=== PATIENT | female | born 1960 | race Caucasian/White ===

== ENCOUNTER 2019-03-24 15:21 | Outpatient (CLI) | payer MEDICARE, SELFPAY ==
--- NOTE | ~2019-03-24 | XR_ITS ---
EXAMINATION: XR hand RT min 3V DATE: 03/24/2019 15:44 INDICATION: Osteoarthritis with pain and pelvis at the second and third distal interphalangeal joints TECHNIQUE: Posteroanterior, oblique and lateral views of the right hand were obtained. COMPARISON: None. FINDINGS: Alignment is normal. No fracture. Minimal osteoarthritis with slight nonuniform joint space narrowing at the first interphalangeal and fifth interphalangeal joints and tiny marginal osteophytes at the t hird distal interphalangeal joint. No cortical erosions. Soft tissues are unremarkable. IMPRESSION: 1. Minimal osteoarthritis at the first interphalangeal and third and fifth distal interphalangeal luz maria nts. Reviewed, dictated and finalized at location A. T ATTENDANT IMPRESSION: 1. Minimal osteoarthritis at the first interphalangeal and third and fifth dist al interphalangeal joints.
== END 2019-03-24 15:22 | disposition home or self-care (01) ==
LOC: ANHIMG 15:30
PROVIDERS: PCP Emergency Medicine; Visit Provider Plastic Surgery
DX: M19.041 Primary osteoarthritis, right hand (principal)
CPT/HCPCS: 73130

== ENCOUNTER → 2019-04-01 09:56 | Outpatient (CLI) | payer MEDICARE, SELFPAY ==
--- NOTE | ~2019-04-01 | CT_ITS ---
EXAMINATION: CT soft tissue neck w con DATE: 04/01/2019 10:16 INDICATION: Left neck lymphadenopathy. TECHNIQUE: Computed tomography (CT) of the neck was performed with 75 mL Omnipaque-350 intravenous co ntrast. Automated exposure control and iterative reconstruction technique were employed. The dose-ayaz gth product was 372.51 mGy-cm. COMPARISON: Brain MRI 10/08/2009 FINDINGS: There is mild scarring at the lung apices. The cervical carotid arteries are normal. There are no pathologically enlarged lymph nodes. There is a mucous retention cyst in right maxillary sinus . There are changes of right mastoidectomy. In the right jugular foramen, there is a 1.4 x 1.1 cm mas s with osteolysis of adjacent bone. There is moderate cervical spondylosis. IMPRESSION: 1. No lymphadenopathy. 2. 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 Reviewed, dictated and finalized at location A. CTICIDE EXPERT
== END ==
PROVIDERS: PCP Emergency Medicine; Visit Provider Emergency Medicine
DX: R59.1 Generalized enlarged lymph nodes (principal)
CPT/HCPCS: 70491; Q9967

== ENCOUNTER 2019-06-22 14:41 | Outpatient (CLI) | payer MEDICARE, SELFPAY ==
--- NOTE | ~2019-06-22 | XR_ITS ---
XR_CERV2-3V_CR 06/22/2019 15:09 Indication: Neck pain Procedure: 4 view cervical spine Comparison: No prior studies for comparison. Findings: Straightening of cervical lordosis. There is mild disc narrowing at C5-6. There is degenera tive anterolisthesis at C4-5. No prevertebral soft tissue abnormality. Odontoid process within normal limits. Lung apices are normal. There are mild foot uncinate degenerative changes at C4-5, C5-6 and C6-7. Impression: 1: Mild cervical spondylosis. Reviewed, dictated and finalized at location A. Impression: 1: Mild cervical spondylosis.
== END 2019-06-22 14:42 | disposition home or self-care (01) ==
LOC: CHSIMG 14:43
PROVIDERS: PCP Internal Medicine; Visit Provider Internal Medicine
DX: M54.2 Cervicalgia (principal)
CPT/HCPCS: 72040

== ENCOUNTER 2019-10-26 16:00 | Outpatient (CLI) | payer MEDICARE, SELFPAY ==
--- NOTE | ~2019-10-26 | XR_ITS ---
XR hip RT min 2V DATE: 10/26/2019 16:22 INDICATION: Right hip pain for one week TECHNIQUE: AP and lateral views COMPARISON: None FINDINGS: No fracture or dislocation, avascular necrosis or bone destruction. Right hip joint space is well preserved. the pubic symphysis and right sacroiliac joint are normal. Sutures overlie the r ight pelvis. IMPRESSION: Negative right hip Reviewed, dictated and finalized at location A. IMPRESSION: Negative right hip
--- NOTE | ~2019-10-26 | XR_ITS ---
XR lumbar spine 2-3V DATE: 10/26/2019 16:22 INDICATION: Right lower back and right hip pain for one week TECHNIQUE: AP, lateral, coned lateral lumbosacral views COMPARISON: None FINDINGS: There is old moderate anterior wedge compression fracture deformity of L3 with cupping of t he superior vertebral endplate. There is prominent degenerative disc disease at L2-3. There is mild to moderate degenerative disc disease at L3-4. Diffuse osteopenia. There is minimal levoscoliosis of the lumbar spine. No bone destruction is evident. The included T11-L5 pedicles are intact. The sacroiliac joints are intact. IMPRESSION: Chronic L3 compression fracture deformity Prominent degenerative disc disease at L2-3, mild/moderate degenerative disc disease at L3-4 Reviewed, dictated and finalized at location A. IMPRESSION: Chronic L3 compression fracture deformity Prominent degenerative disc disease at L2-3, mild/moderate degenerative disc di sease at L3-4
== END 2019-10-26 16:01 | disposition home or self-care (01) ==
LOC: CHSIMG 16:01
PROVIDERS: PCP Internal Medicine; Visit Provider Internal Medicine
DX: M25.551 Pain in right hip (principal)
CPT/HCPCS: 72100; 73502

== ENCOUNTER 2021-07-21 08:54 | Outpatient (CLI) | payer MEDICARE, SELFPAY ==
--- NOTE | ~2021-07-21 | MR_ITS ---
EXAMINATION: MR lumbar spine wo con DATE: 07/21/2021 09:48 INDICATION: R sided LBP R upper lat leg pain x2mo, NKI . TECHNIQUE: Magnetic resonance imaging (MRI) of the lumbar spine was performed without intravenous con trast. Sequences included sagittal T2-weighted FSE, sagittal T2-weighted FS FSE, sagittal T1-weighted FSE, and axial T2-weighted FSE. COMPARISON: 05/09/2017. FINDINGS: The last fully formed and hydrated disc is designated L5-S1. The marrow signal is benign, l ikely with some degree of marrow reconversion. Mild anterior wedge deformity of L3, unchanged. Conus terminates at L1. Multilevel disc dehydration. The following disc levels are specifically discussed: T11-T12: The disc does not extend beyond the endplate margin. There is no facet joint osteoarthritis. There is no neural foraminal stenosis. There is no central canal stenosis. T12-L1: The disc does not extend beyond the endplate margin. There is mild facet joint osteoarthritis . There is no neural foraminal stenosis. There is no central canal stenosis. L1-L2: Mild diffuse bulge. There is moderate facet joint osteoarthritis. There is no neural foraminal stenosis. There is mild central canal stenosis. L2-L3: Severe loss of disc height with reactive endplate changes. Large diffuse bulge. There is moder ate facet joint osteoarthritis. There is mild left and moderate right neural foraminal stenosis. Ther e is mild central canal stenosis. L3-L4: Mild diffuse bulge. There is moderate facet joint osteoarthritis. There is moderate bilateral neural foraminal stenosis. There is mild central canal stenosis. L4-L5: Mild diffuse bulge with a right foraminal component. There is moderate facet joint osteoarthri tis. There is moderate bilateral neural foraminal stenosis. The exiting nerve root on the left is in the inferior and most narrow portion of the foramen with slight deformation. There is mild central ca nal stenosis. L5-S1: Mild diffuse bulge There is moderate facet joint osteoarthritis. There is moderate left neural foraminal stenosis. There is no central canal stenosis. IMPRESSION: 1. Severe degenerative disc disease at L2-3. 2. Multilevel bilateral moderate neural foraminal stenosis described above. Moderate-severe left L4-5 neural foraminal narrowing with deformation of the exiting L4 nerve root. 3. Multilevel facet arthropathy. Reviewed, dictated and finalized at location K. IMPRESSION: 1. Severe degenerative disc disease at L2-3. 2. Multilevel bilateral moderate neural foraminal stenosis described above. Mod erate-severe left L4-5 neural foraminal narrowing with deformation of the exiti ng L4 nerve root. 3. Multilevel facet arthropathy.
== END 2021-07-21 08:55 | disposition home or self-care (01) ==
LOC: CHSIMG 08:55
PROVIDERS: PCP Internal Medicine; Visit Provider Internal Medicine
DX: M54.50 Low back pain, unspecified (principal)
CPT/HCPCS: 72148

== ENCOUNTER 2021-12-05 10:59 | Outpatient (CLI) | payer MEDICARE, SELFPAY ==
--- NOTE | ~2021-12-05 | XR_ITS ---
EXAMINATION: XR elbow RT min 3V DATE: 12/05/2021 11:18 INDICATION: Right elbow pain. TECHNIQUE: 4 views of right elbow were obtained. COMPARISON: Right elbow radiographs 12/25/2006 FINDINGS: Bone alignment is normal. No fracture. Joint spaces are well maintained. There is no elbow joint effusion. IMPRESSION: 1. Normal right elbow. Reviewed, dictated and finalized at location B. IMPRESSION: 1. Normal right elbow.
== END 2021-12-05 11:00 | disposition home or self-care (01) ==
LOC: CHSIMG 11:01
PROVIDERS: PCP Internal Medicine; Visit Provider Internal Medicine
DX: M25.521 Pain in right elbow (principal)
CPT/HCPCS: 73080

== ENCOUNTER 2022-04-03 09:54 | Outpatient (CLI) | payer MEDICARE, SELFPAY ==
--- NOTE | ~2022-04-03 | CT_ITS ---
EXAMINATION: CT abdomen pelvis w con INDICATION: Postprandial abdominal pain TECHNIQUE: Computed tomographic images of the abdomen and pelvis were obtained after the administrati on of 100 cc of Omnipaque 350 intravenous contrast. The dose-length product (DLP) was 314.91 mGy-cm. Automated exposure control and iterative reconstruction technique were employed. COMPARISON: None available FINDINGS: Minimal dependent atelectasis is present in the lung bases. The heart size is normal. Bilat eral breast implants are noted. Cysts of the liver measure up to 3 mm. There is focal fatty infiltrat ion of the liver near the ligamentum teres. The spleen, pancreas, gallbladder, and adrenal glands are normal. The right kidney is unremarkable. There is a 4 mm nonobstructing stone of the left kidney lo wer pole. No pathologically enlarged abdominal or pelvic lymph nodes are identified. No free intraper itoneal gas or evidence of bowel obstruction. A chronic L3 compression fracture is noted. IMPRESSION: 1. No CT correlate for the patient's symptoms. Reviewed, dictated and finalized at location B. TAL LAPPER
[2022-04-03 10:35] LABS: Estimated Glomerular Filt Rate > 60
== END 2022-04-03 09:55 | disposition home or self-care (01) ==
LOC: CHSIMG 09:55
PROVIDERS: PCP Internal Medicine; Visit Provider Internal Medicine
DX: R10.9 Unspecified abdominal pain (principal); Z90.5 Acquired absence of kidney
CPT/HCPCS: 74177; Q9967

== ENCOUNTER 2022-06-06 01:55 | Day surgery (SDC) | payer MEDICARE, SELFPAY ==
[2022-05-28 11:44] VITALS: BMI 23.2
--- NOTE | 2022-06-05 15:50 | PM.HPGS ---
History of Present Illness History of Present Illness Consent: Risks, benefits, and alternatives have been discussed and questions answered. Patient agrees to proceed with procedure. Chief complaint: Vomiting, Abdominal Pain, neoplasm screening Narrative: Vida Su is a 61 year old female Who has had a sensation of pulling after eating a meal and often will regurgitate after eating. She is also due for colon cancer screening. Review of Systems Review of Systems: All systems reviewed & are unremarkable except as noted in HPI and below PMFSH Surgical History Surgical History Hx of total mastectomy Family History Family History Father Hypertension Cerebrovascular accident Mother Thyroid disease Sibling Asthma Depression Anxiety Alcoholism Grandparent Breast cancer Cervical cancer Social History Social History Smoking status: Never smoker Alcohol intake: never Substance use: never Substance use type: does not use Living arrangements: alone Spiritual care concerns: No Meds Home Medications and Allergies Home Medications Medication Instructions Recorded Confirmed Type cholecalciferol (vitamin D3) 10 10 mcg PO DAILY 11/14/20 05/28/22 History mcg (400 unit) capsule (Vitamin D3) ondansetron HCl 4 mg tablet 4 mg PO Q8H PRN Nausea 11/14/20 05/28/22 History (Zofran) rizatriptan 10 mg tablet (Maxalt) 10 mg PO ONCE PRN Migraine Headache 11/14/20 05/28/22 History valacyclovir 500 mg tablet 500 mg PO DAILY PRN Cold Sores 11/14/20 05/28/22 History (Valtrex) estradiol 0.05 mg/24 hr weekly 1 patch transdermal WEEKLY 04/30/22 05/28/22 History transdermal patch magnesium hydroxide 1,200 mg 1,200 mg PO DAILY 04/30/22 05/28/22 History chewable tablet Allergies Allergy/AdvReac Type Severity Reaction Status Date / Time metronidazole Allergy Intermediate Nausea and Verified 06/06/22 08:19 Vomiting morphine Allergy Intermediate hives Verified 06/06/22 08:19 Exam Const: General: alert Orientation/consciousness: patient oriented x3 Resp: Auscultation: clear to auscultation bilaterally Cardio: Rhythm: regular rhythm GI: GI Palp: Yes Soft to palpation and No Tenderness to palpation present (GI) Neuro: General: patient oriented x3 Assessment and Plan Assessment and plan (1) Regurgitation of food: Code(s): R11.10 - Vomiting, unspecified Status: Acute Assessment and Plan: EGD with possible biopsy or dilatation or cautery. (2) Encounter for screening colonoscopy: Code(s): Z12.11 - Encounter for screening for malignant neoplasm of colon Status: Acute Assessment and Plan: Colonoscopy with possible biopsy or polypectomy or cautery or injection of substances.
[2022-06-06 08:20] VITALS: BP 114/56; PULSE 79; RESP 18; TEMP 36.3; O2SAT 100
[2022-06-06] MEDS: LACTATED RINGERS 1,000 ML 150 ML IV CONT (08:42)
--- NOTE | 2022-06-06 09:08 | P.PNAN_ITS ---
Anes - Initial Pre Proc Eval Procedure: Operation Date: 06/06/22 09:30 Proposed Procedures p Esophagogastroduodenoscopy & Screening Colonoscopy - Freddy Jimenez MD Date/Time: 06/06/22 09:08 Surgeon: Freddy Jimenez MD Pre Op Diagnosis: Vomiting, Abdominal Pain, neoplasm screening Patient Data Age: 61 Gender: F Height: 1.7 m Weight: 65 kg Last Vital Signs Temp 97.3 F L 06/06/22 08:20 Pulse 79 06/06/22 08:20 Resp 18 06/06/22 08:20 BP 114/56 L 06/06/22 08:20 Pulse Ox 100 06/06/22 08:20 O2 Del Method Room Air 06/06/22 08:20 Allergies Allergy/AdvReac Type Severity Reaction Status Date / Time metronidazole Allergy Intermediate Nausea and Verified 06/06/22 08:19 Vomiting morphine Allergy Intermediate hives Verified 06/06/22 08:19 Home Medications Medication Instructions Recorded Confirmed Type cholecalciferol (vitamin D3) 10 10 mcg PO DAILY 11/14/20 05/28/22 History mcg (400 unit) capsule (Vitamin D3) ondansetron HCl 4 mg tablet 4 mg PO Q8H PRN Nausea 11/14/20 05/28/22 History (Zofran) rizatriptan 10 mg tablet (Maxalt) 10 mg PO ONCE PRN Migraine Headache 11/14/20 05/28/22 History valacyclovir 500 mg tablet 500 mg PO DAILY PRN Cold Sores 11/14/20 05/28/22 Hi story (Valtrex) estradiol 0.05 mg/24 hr weekly 1 patch transdermal WEEKLY 04/30/22 05/28/22 History transdermal patch magnesium hydroxide 1,200 mg 1,200 mg PO DAILY 04/30/22 05/28/22 History chewable tablet Patient hx anesthesia problems: post op nausea/vomiting Family hx anesthesia problems: none Results Review: All pre-operative results and documents have been reviewed as part of the pre- operative evaluation. [facility] Surgical History Surgical History Hx of total mastectomy Family History Family History Father Hypertension Cerebrovascular accident Mother Thyroid disease Sibling Asthma Depression Anxiety Alcoholism Grandparent Breast cancer Cervical cancer Social History Social History Smoking status: Never smoker Alcohol intake: never Substance use: never Substance use type: does not use Living arrangements: alone Spiritual care concerns: No Anes - Eval Final PreProcedure Day of Procedure 06/06/22 09:08 Patient weight: normal Heart: regular rate and rhythm Lungs: clear to auscultation Airway: Mallampati scale class II Neurological: alert and oriented Last oral intake: >/= 8 hours ASA classification: III Emergent: no Anesthetic plan: proceed Anesthesia type and monitoring: general GIVS and standard monitoring Results Review: All pre-operative results and documents have been reviewed as part of the pre- operative evaluation. Informed Consent: The patient's anesthetic plan and its attendant risks and benefits were discussed with the patient/family/POA. Questions were solicited and answers provided to the satisfaction of the patient/family/POA.
--- NOTE | 2022-06-06 10:11 | SUR.OPER ---
EGD: started at 0958. Colonoscopy began at 1009.
[2022-06-06] MEDS: SIMETHICONE ORAL SUSPENSION 20 MG/0.3 ML 30 ML BOTTLE 0.6 ML IRRIGATION (10:14)
[2022-06-06 10:24] VITALS: BP 105/63; PULSE 77; RESP 18; O2SAT 100
[2022-06-06 10:34] VITALS: BP 113/68; PULSE 71; RESP 17; O2SAT 100
[2022-06-06 10:44] VITALS: BP 123/71; PULSE 71; RESP 21; O2SAT 100
== END 2022-06-06 10:52 | disposition home or self-care (01) ==
PROVIDERS: PCP Internal Medicine; Visit Provider Internal Medicine Gastroenterology
PROC: 0DJ08ZZ Inspection of Upper Intestinal Tract, Via Natural or Artificial Opening Endoscopic (ICD-10-PCS; CPT 43235; principal; 2022-06-06 09:30)
DX: Z12.11 Encounter for screening for malignant neoplasm of colon (principal); K64.8 Other hemorrhoids; K21.9 Gastro-esophageal reflux disease without esophagitis
CPT/HCPCS: 43239; G0121; 87081; 88305; J2405; J2704; J7120

== ENCOUNTER 2022-10-08 09:00 | Outpatient (NON) | payer MEDICARE, SELFPAY | END 2022-10-08 09:01 | disposition home or self-care (01) | PROVIDERS: PCP Internal Medicine; Visit Provider Nurse Practitioner | DX: C44.529 Squamous cell carcinoma of skin of other part of trunk (principal) | CPT/HCPCS: 88305 ==

== ENCOUNTER 2022-11-11 12:18 | Outpatient (NON) | payer MEDICARE, SELFPAY | END 2022-11-11 12:19 | disposition home or self-care (01) | LOC: ANHLAB 12:18 | PROVIDERS: PCP Internal Medicine; Visit Provider Nurse Practitioner | DX: C44.92 Squamous cell carcinoma of skin, unspecified (principal) | CPT/HCPCS: 88305; 88331 ==

== ENCOUNTER 2022-11-29 15:27 | Outpatient (CLI) | payer MEDICARE, SELFPAY ==
--- NOTE | ~2022-11-29 | XR_ITS ---
EXAMINATION: XR chest 2V 11/29/2022 16:11 INDICATION: Chest pain PROCEDURE: 2 view chest COMPARISON: No prior studies for comparison. FINDINGS: The lungs are clear. The cardiomediastinal silhouette is within normal limits. There are no pleural effusions. There is no pneumothorax suspected. There are bilateral breast implants. Ther e are surgical clips in the anterior chest wall. IMPRESSION: 1: NO ACUTE CARDIOPULMONARY DISEASE. Reviewed, dictated and finalized at location A.
--- NOTE | ~2022-11-29 | XR_ITS ---
EXAMINATION: XR abdomen obstructive series DATE: 11/29/2022 16:10 INDICATION: Constipation TECHNIQUE: Upright and supine views of the abdomen were obtained. COMPARISON: CT, 04/03/2022 FINDINGS: The bowel gas pattern is normal. There are no dilated loops of bowel. There is a 5 mm stone of the left kidney lower pole. A chronic L3 compression fracture is noted. The visualized lung bases are clear. There are surgical clips in the left pelvis. A moderate volume of colonic stool is presen t. IMPRESSION: 1. Moderate volume of colonic stool. Reviewed, dictated and finalized at location B.
[2022-11-29 15:41] LABS: Basophils Absolute Auto 0.06 K/mm3 (0.00-0.10); Eosinophils Absolute Auto 0.22 K/mm3 (0.02-0.50); Eosinophils Percent Auto 3.6 % (1.0-6.0); Hematocrit 41.4 % (35.0-49.0); Hemoglobin 13.6 g/dL (12.0-15.0); Immature Granulocyte Absolute 0.02 K/mm3 (0.00-0.00); Immature Granulocyte Percent A 0.3 % (0.0-0.0); Lymphocytes Absolute Auto 1.71 K/mm3 (1.10-4.50); Lymphocytes Percent Auto 28.2 % (18.0-42.0); Mean Corpuscular HGB Conc 32.9 g/dL (32.0-36.0); Mean Corpuscular Hemoglobin 31.7 pg (27.0-31.0); Mean Corpuscular Volume 96.5 fL (78.0-102.0); Mean Platelet Volume 9.6 fl (9.2-11.8); Monocytes Absolute Auto 0.49 K/mm3 (0.10-0.90); Monocytes Percent Auto 8.1 % (2.0-11.0); Neutrophils Absolute Auto 3.6 K/mm3 (1.7-7.2); Neutrophils Percent Auto 58.8 % (50.0-70.0); Platelet Count Result 269 K/mm3 (150-420); Red Blood Count 4.29 M/mm3 (4.20-5.40); Red Cell Distribution Width 12.4 % (11.6-14.4); White Blood Count 6.1 K/mm3 (4.8-10.8)
[2022-11-29 15:42] LABS: Appearance Urine Clear (Clear); Bilirubin Urine Negative (Negative); Blood Urine Negative (Negative); Color Urine Yellow (Yellow); Glucose Urine UA Negative (Negative); Ketones Urine Negative (Negative); Leukocyte Esterase Ur Negative (Negative); Nitrate Urine Negative (Negative); Protein Urine Negative (Negative); Specific Grav Ur 1.025 (1.010-1.020); Urobilinogen Urine 0.2 mg/dL (0.2-1.0)
[2022-11-29 15:43] LABS: Add Urine Microscopic? NO
[2022-11-29 16:09] LABS: Alanine Aminotransferase 26 U/L (14-59); Albumin Level 3.5 g/dL (3.4-5.0); Alkaline Phosphatase 64 U/L (46-116); Amylase 36 U/L (25-115); Anion Gap 5 mmol/L (8-16); Aspartate Amino Transferase 11 U/L (15-37); Bilirubin,Total 0.3 mg/dL (0.00-1.00); Blood Urea Nitrogen 16 mg/dL (7-18); Carbon Dioxide 33 mmol/L (21-32); Chloride 105 mmol/L (98-108); Creatine Kinase 49 U/L (26-192); Estimated Glomerular Filt Rate > 60; Free T4 Free Thyroxine 0.86 ng/dL (0.76-1.46); Glucose 79 mg/dL (70-99); Lipase 33 U/L (16-77); Osmolality Calculated 296 mOsm/kg (285-295); Potassium 4.4 mmol/L (3.5-5.1); Sodium 143 mmol/L (136-145); Thyroid Stimulating Hormone 1.16 uIU/mL (0.36-3.74); Total Protein 6.4 g/dL (6.4-8.2)
[2022-11-29 16:38] LABS: CRP < 0.5 mg/dL (0.0-0.9); Creatine Kinase MB < 0.50 ng/mL (0.00-5.00); Troponin I < 4.0 ng/L (0.00-60.4)
== END 2022-11-29 15:28 | disposition home or self-care (01) ==
LOC: CHSLAB 15:29
PROVIDERS: PCP Internal Medicine; Visit Provider Nurse Practitioner Family
DX: R10.9 Unspecified abdominal pain (principal); R07.9 Chest pain, unspecified; M81.0 Age-related osteoporosis without current pathological fracture; R53.83 Other fatigue
CPT/HCPCS: 36415; 71046; 74019; 80053; 81003; 82150; 82550; 82553; 83690; 84439; 84443; 84484; 85025; 86140; 87077; 87086; 87088; 87186

== ENCOUNTER 2022-12-31 00:13 | Day surgery (SDC) | payer MEDICARE, OTHER, SELFPAY ==
[2022-12-26 09:41] VITALS: BMI 21.7
--- NOTE | 2022-12-26 09:46 | PC.NURSE ---
Report to the Outpatient Waiting Room, entrance under the green pavilion located off [facility], at time 0630 on date 12/31/22. Planned Procedure Time: 0830. Time changes happen often and if your time is changed the preop area will call you the afternoon before. - You and your visitor will be asked to self-screen and do not enter if you have any COVID symptoms. - A mask is optional within the hospital at this time. Patients may have clear liquids (water, carbonated beverages, clear teas, apple juice) until 3 hours prior to surgery with a maximum of 20 ounces. - No food from midnight until time of surgery Take the following medications with a SIP of water the morning of surgery: VALACYCLOVIR IF NEEDED DO NOT STOP ANY OF YOUR OTHER PRESCRIPTION MEDICATIONS PRIOR TO SURGERY ?EXCEPT THE FOLLOWING Medications to discontinue per physician: VITAMINS/SUPPLEMENTS Date to take last dose: 12/27/22 Please no make-up, nail canadian, hairspray, perfume, deodorant, or body powder the day of surgery. No jewelry (including any body piercings) or valuables the day of surgery, leave them at home. Please take a shower or bath the night before, or the morning of, surgery with an antibacterial soap. Wear comfortable, loose fitting clothing. - Jewelry must be removed prior to entering the operating room. Rings and piercings that are not removed may be cut off. - The hospital will not accept responsibility for valuables. - Please leave all valuables, including medications, at home the day of surgery. If you are going home after surgery, a licensed local driver must drive you home. - NO public transportation without another adult if you receive anesthesia. - We recommend that an adult stay with you for 24 hours following discharge. - We also recommend that you do not drive, make important decision, drink alcoholic beverages, or take any drugs that were not prescribed by your health care provider for at least 24 hours after your discharge time. Follow any additional instructions given to you from your surgeon. If you or anyone in your household have experienced Covid symptoms in the past week, please notify your surgeon or the nurse liaison at the phone number below for possible testing. Telephone instructions given to PT - MICKY VENEGAS and asked if any additional questions and then verbalized understanding. Patient advised to call surgeon office or pre surgery nurse liaison [phone] if any additional questions.
[2022-12-31] VITALS (11 sets, daily range): BP systolic 99–145; BP diastolic 52–87; PULSE 56–76; RESP 12–20; TEMP 36.3–36.4; O2SAT 99–100
[2022-12-31 06:56] LABS: Urine Cotinine NEGATIVE
--- NOTE | 2022-12-31 07:00 | WPDHPUPDATE1 ---
History and Physical Update Update Date/Time: 12/31/22 07:00 History and Physical has been reviewed, including an updated exam of the patient. There are NO changes in the patient's condition. Risks, benefits, and alternatives have been discussed and questions answered. Patient agrees to proceed with procedure.
--- NOTE | 2022-12-31 07:00 | W.PM.PROC2 ---
Procedure Note - Detailed Date of Procedure 12/31/22 Pre-op Diagnosis hx of right Breast CA, skin laxity Post-op Diagnosis Same Procedure Performed 1. Left breast fat grafting 100 cc 2. Left breast implant exchange with capsulorraphy 3. Bilateral brachioplasty Surgeon Oziel Mckay MD Anesthesia General Findings Left previous implants [id number] smooth, intact New left implant Ashley Murillo Cohesive 605c REF# [id number] Description of Procedure Preoperatively the risks, benefits, alternatives were discussed in extensive detail. I wanted to be very realistic about the risks involved as well as expectations. I was clear about how we could actually make her worse. Answered all questions to satisfaction. Voiced a clear understanding. Consent obtained. She was taken the operating room placed supine on the operating room table. Anesthesia provided by anesthesiology and prepped and draped in a standard sterile fashion. Surgical time-out was taken. Fat Grafting Stab incisions were made and I tumesced with a tumescent solution bilateral arms and abdomen. Once adequate time for hemostasis suction lipectomy was with a 3 mm multihole cannula to a gravity separation device. This was of bilateral arms. Once adequate time for hemostasis an 18 gauge needle was used to create stab incision and fat grafting completed in multiple planes / passes with vibratory method on MicroAire handpiece. Implant Exchange Fifteen blade used to excise the previous IMF scars. Dissection was continued down until the capsules were identified and entered. Implants removed. I then copiously irrigated with 3 L of saline solution on TUR tubing. Verified strict hemostasis. Popcorn capsulorraphy completed to elevate left IMF which was reinforce with a 2-0 strattafix. No capsulotomy completed as pocket needed volume decrease. I then irrigated with Betadine containing solution. Using a no-touch technique and a Paredes funnel the implant was introduced into the pocket. This was closed with 2-0 PDS followed by 3-0 Monocryl and a running subcuticular 4-0 Monocryl followed by tissue glue. Arms I completed suction lipectomy was with a 4 mm basket cannula based on S.A.F.E. technique. This was completed based on preoperative planning, intraoperative observation, and rolling pinch test which was in full agreement. I completely de-fatted the planned resection area and a strip avulsion technique was completed. Starting proximal to distal a 10 blade was used to excise the intervening skin and this was tacked as we proceed to ensure good closure. This was closed using a 2-0 Quill, 3-0 strata fix, running subcuticular 4-0 Monocryl, and tissue glue. Dressings were placed. Tolerated the procedure well. Taken to the PACU without difficulty. All instrument sponge counts were correct at the end of the case. Estimated Blood Loss 30 Drains No Packing No Pathology None sent Complications No immediate complications Condition Stable Disposition PACU
--- NOTE | 2022-12-31 07:01 | WPDANESEPPF ---
Anes - Initial Pre Proc Eval Procedure: Operation Date: 12/31/22 08:30 Proposed Procedures p Left Breast Implant Exchange with Fat Grafting, - Oziel Mckay MD s Bilateral Brachioplasty - Oziel Mckay MD Date/Time: 12/31/22 07:01 Surgeon: Oziel Mckay MD Pre Op Diagnosis: hx of right Breast CA, skin laxity Patient Data Age: 62 Gender: F Height: 1.7 m Weight: 63.05 kg Allergies Allergy/AdvReac Type Severity Reaction Status Date / Time metronidazole Allergy Intermediate Nausea and Verified 12/26/22 09:39 Vomiting morphine Allergy Intermediate hives Verified 12/26/22 09:39 Home Medications Medication Instructions Recorded Confirmed Type cholecalciferol (vitamin D3) 10 10 mcg PO DAILY 11/14/20 12/26/22 History mcg (400 unit) capsule (Vitamin D3) ondansetron HCl 4 mg tablet 4 mg PO Q8H PRN Nausea 11/14/20 12/26/22 History (Zofran) rizatriptan 10 mg tablet (Maxalt) 10 mg PO ONCE PRN Migraine Headache 11/14/20 12/26/22 History valacyclovir 500 mg tablet 500 mg PO DAILY PRN Cold Sores 11/14/20 12/26/22 History (Valtrex) estradiol 0.05 mg/24 hr weekly 1 patch transdermal WEEKLY 04/30/22 12/26/22 History transdermal patch magnesium hydroxide 1,200 mg 1,200 mg PO DAILY 04/30/22 12/26/22 History chewable tablet cyanocobalamin (vitamin B-12) 2,500 mcg PO DAILY 12/26/22 12/26/22 History 2,500 mcg tablet minoxidil 2.5 mg tablet 1.25 mg PO USEASDIRECTD 12/26/22 12/26/22 History Laboratory Tests 12/31/22 06:38 Cotinine Negative Patient hx anesthesia problems: none Family hx anesthesia problems: none Results Review: All pre-operative results and documents have been reviewed as part of the pre-operative evaluation. [facility] Past Medical History Medical History (Updated 12/31/22 @ 07:03 by Marino Grimaldo MD) Brain tumor Breast cancer Status post gamma knife treatment Surgical History Surgical History (Updated 12/31/22 @ 07:02 by Marino Grimaldo MD) History of mastectomy Hx of total mastectomy bilateral with reconstruction x 4 Family History Family History Father Hypertension Cerebrovascular accident Mother Thyroid disease Sibling Asthma Depression Anxiety Alcoholism Grandparent Breast cancer Cervical cancer Social History Social History Smoking status: Never smoker Alcohol intake: current Alcohol use details: RARE Substance use: current Substance use type: marijuana Living arrangements: alone Spiritual care concerns: No Anes - Eval Final PreProcedure Day of Procedure 12/31/22 07:01 Patient weight: normal Heart: regular rate and rhythm Lungs: clear to auscultation Airway: Mallampati scale class III and other (small mouth) Neurological: alert and oriented Last oral intake: >/= 8 hours ASA classification: III Emergent: no Anesthetic plan: proceed Anesthesia type and monitoring: general LMA and standard monitoring Results Review: All pre-operative results and documents have been reviewed as part of the pre-operative evaluation. Informed Consent: The patient's anesthetic plan and its attendant risks and benefits were discussed with the patient/family/POA. Questions were solicited and answers provided to the satisfaction of the patient/family/POA.
[2022-12-31] MEDS: SCOPOLAMINE 1.5 MG PATCH TRANSDERM (07:33)
[2022-12-31] MEDS: LACTATED RINGERS 1,000 ML 30 ML IV CONT ×2 (07:50→12:00)
[2022-12-31] MEDS: ceFAZolin 2 GM/D5W 50 ML 2 GM/50 ML BAG IVPB (08:51)
[2022-12-31] MEDS: NACL 0.9% IRRIG POUR BOTTLE 900 ML, GENTAMICIN SULFATE INJ 160 MG, ceFAZolin 2 GM, POVI... IRRIGATION (09:42)
[2022-12-31] MEDS: LACTATED RINGERS IRRIG 1,000 ML, LIDOCAINE HCL 1% LOCAL INJ 50 ML, EPINEPHrine HCL INJ ... INFILTRATE (09:43)
[2022-12-31] MEDS: ONDANSETRON INJ 4 MG/2 ML VIAL IV PUSH (13:14)
[2022-12-31] MEDS: fentaNYL CITRATE INJ (*CRX) 100 MCG/2 ML VIAL 25 MCG IV PUSH ×2 (13:18→13:25)
== END 2022-12-31 14:13 | disposition home or self-care (01) ==
PROVIDERS: PCP Internal Medicine; Visit Provider Surgery Plastic and Reconstructive Surgery
PROC: (CPT 19342; principal; 2022-12-31 08:30)
PROC: (CPT 15836; 2022-12-31 08:30)
DX: N64.89 Other specified disorders of breast (principal); Z85.3 Personal history of malignant neoplasm of breast; L57.4 Cutis laxa senilis; F12.90 Cannabis use, unspecified, uncomplicated; Z79.899 Other long term (current) drug therapy
CPT/HCPCS: 19380; 15878; 15836; 80307; A9270; J0171; J0690; J1100; J1170; J1580; J2250; J2405; J2704; J3010; J7120

== ENCOUNTER 2023-01-16 09:15 | Outpatient (CLI) | payer MEDICARE, SELFPAY ==
--- NOTE | ~2023-01-16 | XR_ITS ---
Right elbow Technique: AP, oblique, and lateral views were obtained. Clinical History: Lateral epicondylitis Findings: No acute fracture or dislocation is seen. Osseous alignment is anatomic. Joint spaces are p reserved. There is no displacement of the fat pads, and soft tissues are unremarkable. Impression: Unremarkable radiographs. Reviewed, dictated and finalized at [facility]. [employer] PROFESSOR OF ENGLISH Impression: Unremarkable radiographs.
--- NOTE | ~2023-01-16 | MR_ITS ---
MRI of the right elbow Clinical history: Lateral epicondylitis TECHNIQUE: Proton-density and proton-density fat-sat images were acquired in the axial, coronal, and sagittal planes. FINDINGS: Ulnar collateral ligament is intact. Radial collateral ligament and the lateral ulnar colla teral ligament are intact. There is severe tendinosis, with probable low-grade interstitial tearing, at the common extensor tendon origin at the lateral epicondyle of the humerus. Common flexor tendon o rigin is unremarkable. Bone marrow signals are unremarkable. No articular abnormality of the elbow. No joint effusion. Biceps, brachialis, and triceps tendons are intact. Visualized musculature unremarkable. No soft tiss ue mass evident. There is mild subcutaneous soft tissue edema at the anteromedial aspect of the elbow , nonspecific. IMPRESSION: Severe tendinosis with probable superimposed low-grade interstitial tearing at the common extensor te ndon origin of the lateral epicondyle of the humerus. Reviewed, dictated and finalized at [facility]. 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
== END 2023-01-16 09:16 | disposition home or self-care (01) ==
LOC: CHSIMG 09:17
PROVIDERS: PCP Internal Medicine; Visit Provider Physician Assistant
DX: M77.11 Lateral epicondylitis, right elbow (principal); M77.8 Other enthesopathies, not elsewhere classified
CPT/HCPCS: 73080; 73221

== ENCOUNTER 2023-07-28 13:41 | Outpatient (CLI) | payer MEDICARE, SELFPAY ==
[2023-07-28 13:58] LABS: Hematocrit 42.9 % (35.0-49.0); Mean Corpuscular HGB Conc 32.6 g/dL (32-36); Mean Corpuscular Hemoglobin 30.4 pg (27.0-31.0); Mean Corpuscular Volume 93.1 fL (78.0-102.0); Mean Platelet Volume 9.7 fl (9.2-11.8); Platelet Count Result 265 K/mm3 (150-420); Red Blood Count 4.61 M/mm3 (4.20-5.40); Red Cell Distribution Width 12.1 % (11.6-14.4); White Blood Count 8.6 K/mm3 (4.8-10.8)
[2023-07-28 14:05] LABS: Appearance Urine Clear (Clear); Bilirubin Urine Negative (Negative); Blood Urine Trace-intact (Negative); Color Urine Yellow (Yellow); Glucose Urine UA Negative (Negative); Ketones Urine 2+ (Negative); Leukocyte Esterase Ur Negative (Negative); Nitrate Urine Negative (Negative); Protein Urine Negative (Negative); Specific Grav Ur >= 1.030 (1.010-1.020); Urobilinogen Urine 0.2 mg/dL (0.2-1.0)
[2023-07-28 14:19] LABS: Alanine Aminotransferase 21 U/L (14-59); Albumin Level 4.2 g/dL (3.4-5.0); Alkaline Phosphatase 62 U/L (46-116); Anion Gap 8 mmol/L (4-12); Aspartate Amino Transferase 16 U/L (15-37); Bilirubin,Total 0.6 mg/dL (0.00-1.00); Blood Urea Nitrogen 25 mg/dL (7-18); Calcium 9.6 mg/dL (8.5-10.1); Carbon Dioxide 31 mmol/L (21-32); Chloride 100 mmol/L (98-108); Estimated Glomerular Filt Rate > 60; Glucose 86 mg/dL (70-99); Osmolality Calculated 291 mOsm/kg (285-295); Potassium 4.2 mmol/L (3.5-5.1); Sodium 139 mmol/L (136-145); Total Protein 6.9 g/dL (6.4-8.2)
[2023-07-28 14:29] LABS: Add Urine Microscopic? YES; RBC Urine 21-50 /hpf (0-2); Squamous Epithelial Cell Urine Many /hpf (Few); WBC Urine None seen /hpf (0-3)
[2023-07-28 14:30] LABS: Mucus Urine Few /lpf
== END 2023-07-28 13:42 | disposition home or self-care (01) ==
LOC: CHSLAB 13:43
PROVIDERS: PCP Nurse Practitioner Family; Visit Provider Nurse Practitioner Family
DX: R82.4 Acetonuria (principal); M25.562 Pain in left knee
CPT/HCPCS: 36415; 73562; 80053; 81001; 85027

== ENCOUNTER 2023-07-30 16:54 | Outpatient (RCR) | payer MEDICARE, SELFPAY ==
--- NOTE | 2023-07-30 16:55 | PTOPEVAL1 ---
Assessment and note entered by Bahman Rivers Evaluation Information Assessment Status Evaluation Diagnosis left knee pain Onset 07/15/23 Subjective Information Pt. reports she began noticing knee pain around . She reports pain began after playing pickleball. She reports pain is located on the inside of the left knee. She underwent x- ray which was negative. She reports that her knee pain is worsened with walking and standing activities. She reports that sleeping with her knees bent will also increase her pain. She reports that she continues to exercise and perform daily activities despite her pain. She reports her goal is to decrease her left knee pain to fully participate in normal recreational activities. Reported Pain Level Pain Score 3: Self Report Assessment PT Clinical Summary Pt. is a 62 year old female who enters the clinic with left knee pain. Pt. presents with impaired gait, impaired proximal l.e. strength, impaired flexibility and pain on this date. Continued skilled PT is indicated in order to improve these areas to allow the pt. to be able to complete all IADL's and participate in recreational activities without limitation. Plan of Care Interventions Electrical Stimulation,Gait Training,Hot Pack/Cold Pack,Manual Therapy,Neuro Re-education,Patient/ Caregiver Educati,Therapeutic Activities, Therapeutic Exercise PT Services Indicated Yes Treatment Frequency and 2x/week x 8 visits Duration These treatments will address the objective and functional deficits as defined above. The patient will be advanced safely and appropriately in order for the patient to progress towards his/her prior level of function. Additional exercises will be introduced and as well as a comprehensive home exercise program upon discharge, if needed, ?to ensure carryover of functional gains achieved in the clinic. This treatment plan has been reviewed and agreement upon by the patient.
--- NOTE | 2023-07-30 16:56 | OPREHPOC ---
Outpatient Therapy Plan of Care This is a Multidisciplinary Plan of Care that may contain components documented by all disciplines (PT, OT, and ST.) PT Problem 1 PT Problem #1 Knowledge Deficit PT Goal 1 Goal Pt. will be independent with a HEP addressing flexibility and strength. Target Visit 2 PT Problem 2 PT Problem #2 Pain PT Goal 1 Goal Pt. will report pain levels at 1/10 at worst with all recreational activities. Target Visit 8 PT Problem 3 PT Problem #3 Impaired Flexibility PT Goal 1 Goal pt. will present at 10 degrees from full knee extension with the 90/90 test. Target Visit 4 PT Problem 4 PT Problem #4 Impaired Gait PT Goal 1 Goal Pt. will be able to perform cutting and pivoting activities with 0/10 pain Pt. will ambulate without deviation. Target Visit 8
--- NOTE | 2023-08-18 11:38 | PCPTNOTE ---
Pt. called and cancelled her appointment today due to a schedule conflict. Bahman Rivers, MPT
--- NOTE | 2023-11-03 07:22 | PCPTNOTE ---
Mrs. Su attended a total of 7 treatment sessions from 07/30/23 to 08/29/23. She continued to report intense knee pain at her last session on 08/29/23. Treatment consisted of manual techniques to reduce pain, therapeutic exercise addressing strength and ROM, as well as modality care to reduce pain. She has failed to return to the clinic since 08/29/23 and will be discharged from our care. Thank you for the referral of this patient. Bahman Rivers, MPT
== END 2023-08-29 23:59 | disposition home or self-care (01) ==
LOC: CHSPT 16:54
PROVIDERS: Visit Provider Nurse Practitioner Family
DX: M25.562 Pain in left knee (principal)
CPT/HCPCS: 97014; 97110; 97140; 97161; G0283

== ENCOUNTER 2023-08-04 12:57 | Outpatient (CLI) | payer MEDICARE, SELFPAY ==
[2023-08-04 13:13] LABS: Appearance Urine Clear (Clear); Bilirubin Urine Negative (Negative); Blood Urine Negative (Negative); Color Urine Light Yellow (Yellow); Glucose Urine UA Negative (Negative); Ketones Urine Negative (Negative); Leukocyte Esterase Ur Negative (Negative); Nitrate Urine Negative (Negative); Protein Urine Negative (Negative); Specific Grav Ur 1.015 (1.010-1.020); Urobilinogen Urine 0.2 mg/dL (0.2-1.0)
[2023-08-04 13:15] LABS: Add Urine Microscopic? NO
[2023-08-04 13:45] LABS: Alanine Aminotransferase 18 U/L (14-59); Albumin Level 3.9 g/dL (3.4-5.0); Alkaline Phosphatase 57 U/L (46-116); Anion Gap 7 mmol/L (4-12); Aspartate Amino Transferase 12 U/L (15-37); Bilirubin,Total 0.4 mg/dL (0.00-1.00); Blood Urea Nitrogen 20 mg/dL (7-18); Calcium 9.3 mg/dL (8.5-10.1); Carbon Dioxide 30 mmol/L (21-32); Chloride 104 mmol/L (98-108); Estimated Glomerular Filt Rate > 60; Glucose 96 mg/dL (70-99); Osmolality Calculated 294 mOsm/kg (285-295); Potassium 4.1 mmol/L (3.5-5.1); Sodium 141 mmol/L (136-145); Total Protein 6.5 g/dL (6.4-8.2)
== END 2023-08-04 12:58 | disposition home or self-care (01) ==
LOC: CHSLAB 13:00
PROVIDERS: PCP Internal Medicine; Visit Provider Nurse Practitioner Family
DX: R82.4 Acetonuria (principal)
CPT/HCPCS: 36415; 80053; 81003; 87077; 87086; 87088; 87186

== ENCOUNTER 2023-09-04 15:11 | Outpatient (CLI) | payer MEDICARE, SELFPAY ==
--- NOTE | ~2023-09-04 | US_ITS ---
US arterial ankle brachial ind INDICATION: Peripheral arterial disease TECHNIQUE: Segmental pressures and plethysmographic and Doppler waveforms of the brachial and lower e xtremity arteries were obtained. COMPARISON: None. FINDINGS: Right and left brachial artery pressures of 100 mm Hg and 100 mm Hg, respectively, are concordant (no rmal difference <= 30 mmHg). The right ankle-brachial index (TIKA) is 1.35 (normal >= 0.9-1.0). The right great toe-brachial index (TBI) is 1.01 (normal >= 0.60). The left TIKA is 1.41. The left TBI is 0.9. IMPRESSION: 1. Normal ankle-brachial indices. Reviewed, dictated and finalized at location [facility].
== END 2023-09-04 15:12 | disposition home or self-care (01) ==
PROVIDERS: PCP Internal Medicine; Visit Provider Nurse Practitioner Family
DX: R60.0 Localized edema (principal); I73.9 Peripheral vascular disease, unspecified
CPT/HCPCS: 93922